=== PATIENT | female | born 1975 | race Caucasian/White ===

== ENCOUNTER 2017-08-12 17:45 | Emergency (ER) | payer MEDICAID ==
[~2017-08-12] VITALS: Ht 167.6 cm; Wt 113.4 kg
[~2017-08-12 17:45] MED LIST: ADVAIR 100-501 EACH IH; AMOXICILLIN875 MG PO; ARMOUR THYROID15 M1 PO; ARMOUR THYROID30 M1; BACTRIM DS TAB1 EACH PO; CARISOPRODOL 3350 MG PO; CLEOCIN HCL300 MG PO; FLEXERIL PO; HYDROCODON-ACE1 EAC7 PO; HYDROCODONE-AP1 EAC6 PO; IBUPROFEN 800800 M1 PO; IBUPROFEN 800800 MG PO; MEDROL DOSPAK21 TA1 PO; MEDROLDOSEPACK PO; MIRTAZAPINE7.5 MG PO; MOBIC15 MG PO; MOBIC7.5 M1 PO; NAPROSYN500 MG PO; NAPROXEN 500MG500 MG PO; NEURONTIN 400M400 M2 PO; NOHOMEMEDICATIONS; NORCO 5-325 TA1 EACH PO; NORCO 7.5-3251 EACH PO; PENICILLIN VK250 MG PO; PENICILLIN VK500 M1 PO; PERCOCET 5-3251 EACH PO; PREDNISONE 20 M20 MG PO; RISPERDAL 1 MG T1 MG PO; SYNTHROID50 MCG PO; ULTRAM 50MG TAB50 MG PO; ZANAFLEX4 MG; [UNRECOGNIZED DRUG - OTHER] IH
[2017-08-12 19:30] VITALS: BP 103/73
== END 2017-08-12 19:32 | disposition home or self-care (01) ==
LOC: M.ERS 17:45
DX: M25.551 Pain in right hip (principal); M54.5 Low back pain; E03.9 Hypothyroidism, unspecified; F31.9 Bipolar disorder, unspecified; Z90.89 Acquired absence of other organs; Z96.651 Presence of right artificial knee joint; Z88.1 Allergy status to other antibiotic agents; W18.39XA Other fall on same level, initial encounter; Y93.89 Activity, other specified; Y92.89 Other specified places as the place of occurrence of the external cause; Y99.8 Other external cause status